=== PATIENT | female | born 2005 | race Two or more races ===

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

== ENCOUNTER 2024-01-03 14:48 | Emergency (ER) | payer BC, MEDICAID, OTHER ==
[~2024-01-03] VITALS: Ht 165.1 cm; Wt 45.4 kg
[2024-01-03 17:12] VITALS: BP 141/93; TEMP 98.2; O2SAT 100
== END 2024-01-03 17:19 | disposition home or self-care (01) ==
LOC: ER 14:51
DX: R10.9 Unspecified abdominal pain (principal); R07.89 Other chest pain; Z53.21 Procedure and treatment not carried out due to patient leaving prior to being seen by health care provider

== ENCOUNTER 2024-08-17 11:19 | Emergency (ER) | payer BC, OTHER ==
[~2024-08-17] VITALS: Ht 167.6 cm; Wt 55.3 kg
[2024-08-17] MEDS: METOCLOPRAMIDE HCL 10 MG/2 ML VIAL IV ONE (13:00)
[2024-08-17 13:21] LABS: BASOPHILS % (AUTO) 0.2 % (0.0-2.0); EOSINOPHILS % (AUTO) 0.2 % (0.0-6.0); HEMATOCRIT 46 % (33-45); HEMOGLOBIN 15.4 g/dL (11.5-14.8); LYMPHOCYTES # (AUTO) 1.1 K/uL (0.8-4.8); LYMPHOCYTES % (AUTO) 24.9 % (20.0-44.0); MEAN CORPUSCULAR HEMOGLOBIN 28 PG (26.0-33.0); MEAN CORPUSCULAR HGB CONC 33 g/dl (31.0-36.0); MEAN CORPUSCULAR VOLUME 84 fL (82-100); MONOCYTES # (AUTO) 0.3 K/uL (0.1-1.30); MONOCYTES % (AUTO) 7.2 % (2.0-12.0); NEUTROPHILS % (AUTO) 67.5 % (43.0-81.0); PLATELET COUNT (AUTO) 299 K/uL (150-450); RED BLOOD CELL COUNT(AUTO) 5.51 MIL/uL (4.0-5.2); RED CELL DISTRIBUTION WIDTH 16.7 % (11.5-15.0); WHITE BLOOD COUNT (AUTO) 4.4 K/uL (4.3-11.0)
[2024-08-17] MEDS ORDERED: diphenhydrAMINE HCL 50 MG/ML VIAL ONE (13:25)
[2024-08-17] MEDS ORDERED: METOCLOPRAMIDE HCL 10 MG/2 ML VIAL ONE (13:26)
[2024-08-17] MEDS ORDERED: LIDOCAINE VISCOUS 2% UD 15 ML UDC ONE (13:26)
[2024-08-17] MEDS ORDERED: FAMOTIDINE/PF INJ 20 MG/2 ML VIAL IV ONE (13:26)
[2024-08-17] MEDS ORDERED: MAG HYDROX/AL HYDROX/SIMETH 30 ML UDC ONE (13:26)
[2024-08-17] MEDS ORDERED: KETOROLAC TROMETHAMINE 15 MG/ML VIAL ONE (13:26)
[2024-08-17 13:35] LABS: ALANINE AMINOTRANSFERASE 15 U/L (12-78); ALBUMIN 4.9 g/dL (3.4-5.0); ALKALINE PHOSPHATASE 92 U/L (46-116); ASPARTATE AMINOTRANSFERASE 20 U/L (15-37); BILIRUBIN,DIRECT 0.1 mg/dL (0.0-0.2); BILIRUBIN,TOTAL 0.5 mg/dL (0.2-1.0); TOTAL PROTEIN, SERUM 9.3 g/dL (6.4-8.2)
[2024-08-17] MEDS: diphenhydrAMINE HCL 50 MG/ML VIAL IV ONE (13:40)
[2024-08-17] MEDS: IV NS 0.9% 1,000 ML BAG IV ONE (13:41)
[2024-08-17] MEDS: MAG HYDROX/AL HYDROX/SIMETH 30 ML UDC PO ONE (13:42)
[2024-08-17] MEDS: FAMOTIDINE/PF INJ 20 MG/2 ML VIAL IV ONE (13:42)
[2024-08-17] MEDS: LIDOCAINE VISCOUS 2% UD 15 ML UDC MM ONE (13:42)
[2024-08-17] MEDS: KETOROLAC TROMETHAMINE 15 MG/ML VIAL IV ONE (13:42)
[2024-08-17 14:06] LABS: CALCIUM, SERUM 9.8 mg/dL (8.5-10.1); CREATININE 0.7 mg/dL (0.6-1.3); POTASSIUM 3.9 mmol/L (3.5-5.1)
[2024-08-17] MEDS ORDERED: ONDA4TAB5 PO (14:24)
[2024-08-17] MEDS ORDERED: IBUP-1955 PO (14:24)
[2024-08-17 14:57] VITALS: BP 140/77; TEMP 98.8; O2SAT 100
[2024-08-17 15:19] LABS: APPEARANCE,URINE SLIGHTLY CLOUDY (CLEAR); BILIRUBIN,URINE 1+ (NEGATIVE); BLOOD, URINE 3+ Ery/uL (NEGATIVE); COLOR,URINE YELLOW (YELLOW); KETONES,URINE 2+ mg/dL (NEGATIVE); LEUKOCYTE ESTERASE ,URINE NEGATIVE (NEGATIVE); NITRITE, URINE NEGATIVE (NEGATIVE); PH,URINE 6.5 (5.0-8.0); PROTEIN,URINE 1+ mg/dl (NEGATIVE); UGLUCOSE NEGATIVE (NEGATIVE)
[2024-08-17 15:21] LABS: PREGNANCY TEST URINE QUAL NEGATIVE (NEGATIVE)
[2024-08-17 16:17] LABS: ADD URINE CULTURE NO; BACTERIA,URINE None seen /HPF (None Seen); RBC,URINE 51-80 /HPF (0-2); SQUAMOUS EPITHELIAL CELL,UR 0-2 /HPF (None Seen); WBC,URINE 0-2 /HPF (0-3)
== END 2024-08-17 14:57 | disposition home or self-care (01) ==
LOC: ER 11:24
DX: R07.89 Other chest pain (principal); R51.9 Headache, unspecified; R10.13 Epigastric pain; R42 Dizziness and giddiness; R53.83 Other fatigue; R94.6 Abnormal results of thyroid function studies
CPT/HCPCS: 99285; 96374; 96375; 71045; 96361; 93005; 85025; 80048; 80076; 84703; 81001; 36415; 84443; 84484; J1885; J1200; J1308; J2765; J7030